=== PATIENT | female | born 1985 | race Two or more races ===

== ENCOUNTER 2019-07-18 22:20 | Emergency (ER) | payer MEDICAID ==
[~2019-07-18] VITALS: Ht 162.6 cm; Wt 67.1 kg
[2019-07-18 22:48] LABS: Basophils # (auto) 0 uL; Basophils % (auto) 0.4 % (0.0-2.0); Eosinophils # (auto) 0 uL; Eosinophils % (auto) 0.1 % (0.0-7.0); Hematocrit 41.1 % (36.0-46.0); Hemoglobin 13.9 g/dL (12.2-16.2); Lymphocytes # (auto) 0.8 uL; Lymphocytes % (auto) 6.2 % (10.0-50.0); Mean Corpuscular Hemoglobin 30.9 pg (28.0-32.0); Mean Corpuscular Volume 91.1 fL (80.0-100.0); Monocytes # (auto) 0.9 uL; Monocytes % (auto) 6.6 % (0.0-12.0); Neutrophils # (auto) 11.4 uL; Neutrophils % (auto) 86.7 % (37.0-80.0); Platelet Count (auto) 257 10^3/uL (140-450); Red Blood Cells 4.51 10^6/uL (4.0-5.20); Red Cell Distribution Width 14.3 % (11.8-14.3); White Blood Cell 13.1 10^3/uL (4.4-10.8)
[2019-07-18 23:19] LABS: Albumin 3.4 g/dL (3.4-5.0); BUN/Creatinine Ratio 11.8; Calcium 8.6 mg/dL (8.5-10.1); Potassium 3.8 mmol/L (3.5-5.1)
[2019-07-18 23:22] LABS: Bilirubin, Total 0.5 mg/dL (0.2-1.0); Total Protein 7.6 g/dL (6.4-8.2)
[2019-07-19 00:19] LABS: Urine Bacteria MOD /hpf (None Seen); Urine Blood Negative /uL (Negative); Urine Hyaline Cast FEW /lpf (0 - 2); Urine Specific Gravity 1.018 (1.001-1.035); Urine WBC 25 /hpf (0 - 5)
[2019-07-19] MEDS ORDERED: cefTRIAXone 1GM/50ML D5W 50 ML IV ONE (01:45)
[2019-07-19] MEDS ORDERED: ONDANSETRON HCL 4 MG/2 ML VIAL IV ONE (01:45)
[2019-07-19] MEDS ORDERED: KETOROLAC TROMETH 30 MG/ML 1ML VIAL IV ONE (01:45)
[2019-07-19 03:43] VITALS: BP 116/78
== END 2019-07-19 03:54 | disposition home or self-care (01) ==
LOC: ER 22:23
DX: N39.0 Urinary tract infection, site not specified (principal); F17.210 Nicotine dependence, cigarettes, uncomplicated
CPT/HCPCS: 36415; 74176; 80053; 81001; 81025; 83690; 85025; 96365; 96375; 99284; J0696; J1885; J2405

== ENCOUNTER 2021-04-23 18:38 | Emergency (ER) | payer MEDICAID ==
[~2021-04-23] VITALS: Ht 152.4 cm; Wt 54.4 kg
[2021-04-23 19:34] LABS: Alanine Aminotransferase 28 U/L (13-56); Anion Gap 9 (5-15); Aspartate Aminotransferase 27 U/L (15-37); BUN/Creatinine Ratio 16.9; Blood Urea Nitrogen 11 mg/dL (7-18); Carbon Dioxide 25 mmol/L (21-32); Chloride 107 mmol/L (98-107); GFR African American 132 mL/min; GFR Non-African American 109 mL/min; Glucose 113 mg/dL (74-106); Magnesium 2.2 mg/dL (1.6-2.6); Potassium 3.1 mmol/L (3.5-5.1); Sodium 141 mmol/L (136-145)
[2021-04-23 19:35] LABS: Basophils # (auto) 0 10 ^3/uL (0-0.2); Basophils % (auto) 0.4 % (0.0-2.0); Eosinophils # (auto) 0 10 ^3/uL (0-0.8); Eosinophils % (auto) 0.4 % (0.0-7.0); Hematocrit 41.2 % (36.0-46.0); Hemoglobin 14.3 g/dL (12.2-16.2); Lymphocytes # (auto) 2.8 10 ^3/uL (0.4-5.4); Lymphocytes % (auto) 45.5 % (10.0-50.0); Mean Corpuscular Hemoglobin 31.1 pg (28.0-32.0); Mean Corpuscular Hgb Conc. 34.7 g/dL (32.0-36.0); Mean Corpuscular Volume 89.8 fL (80.0-100.0); Monocytes # (auto) 0.9 10 ^3/uL (0-1.3); Monocytes % (auto) 14.1 % (0.0-12.0); Neutrophils # (auto) 2.4 10 ^3/uL (1.6-8.6); Neutrophils % (auto) 39.6 % (37.0-80.0); Nucleated Red Blood Cells % 0.3 %; Red Blood Cells 4.59 10^6/uL (4.0-5.20); Red Cell Distribution Width 13.8 % (11.8-14.3); White Blood Cell 6.1 10^3/uL (4.4-10.8)
[2021-04-23 19:44] LABS: Alkaline Phosphatase 86 U/L (45-117); Bilirubin, Total 0.4 mg/dL (0.2-1.0); Total Protein 7.6 g/dL (6.4-8.2)
[2021-04-23 20:29] LABS: Acetaminophen 2.1 ug/mL (10-30); Salicylate < 1.7 mg/dL (2.8-20.0)
[2021-04-24 10:56] LABS: Urine Amorphous Crystal FEW /hpf (None Seen); Urine Bacteria FEW /hpf (None Seen); Urine Blood Negative /uL (Negative); Urine Mucus FEW (None Seen); Urine Specific Gravity 1.026 (1.001-1.035); Urine WBC 1 /hpf (0 - 5)
[2021-04-24 11:04] LABS: Alcohol, Urine < 3.0 mg/dL (0-10); Amphetamine Screen, Urine POSITIVE (NEGATIVE); Cannabinoid Screen, Urine NEGATIVE (NEGATIVE); Cocaine Screen, Urine NEGATIVE (NEGATIVE); Phencyclidine Screen, Urine NEGATIVE (NEGATIVE)
[2021-04-24 11:11] LABS: Barbiturate Scree,Urine NEGATIVE (NEGATIVE); Benzodiazephine Screen, Urine NEGATIVE (NEGATIVE); Opiate Scree,Urine NEGATIVE (NEGATIVE)
[2021-04-24] MEDS ORDERED: LORazepam 2MG/ML-1ML VIAL IM ONE (20:15)
[2021-04-25] MEDS: THIAMINE HCL 100 MG TAB PO SCH (06:46)
[2021-04-25] MEDS: MULTIPLE VITAMIN TAB PO SCH (06:47)
[2021-04-25] MEDS ORDERED: LORazepam 0.5 MG TAB PO ONE (20:30)
[2021-04-26] MEDS: THIAMINE HCL 100 MG TAB PO SCH (07:32)
[2021-04-26] MEDS: MULTIPLE VITAMIN TAB PO SCH (07:33)
[2021-04-26] MEDS ORDERED: LORazepam 0.5 MG TAB PO ONE ×2 (10:30→19:45)
[2021-04-26] MEDS ORDERED: POTASSIUM EFFERVESENT TAB 25 MEQ PO ONE (11:30)
[2021-04-27] MEDS: MULTIPLE VITAMIN TAB PO SCH (07:00)
[2021-04-27] MEDS: THIAMINE HCL 100 MG TAB PO SCH (07:00)
[2021-04-27 10:00] VITALS: BP 99/65
== END 2021-04-27 10:45 | disposition home or self-care (01) ==
LOC: EDBD 18:38 → ER 18:42
DX: T39.1X2A Poisoning by 4-Aminophenol derivatives, intentional self-harm, initial encounter (principal); R07.9 Chest pain, unspecified; F17.210 Nicotine dependence, cigarettes, uncomplicated; Z20.822 Contact with and (suspected) exposure to COVID-19; Y92.89 Other specified places as the place of occurrence of the external cause
CPT/HCPCS: 36415; 80053; 80307; 80320; 80329; 81001; 82248; 83735; 84484; 84702; 85025; 85049; 87426; 93005

== ENCOUNTER 2021-05-15 17:30 | Inpatient (IN) | payer MEDICAID ==
[2021-05-15] VITALS (10 sets, daily range): BP systolic 83–146; BP diastolic 54–79
[~2021-05-15] VITALS: Ht 162.6 cm; Wt 52.2 kg
[2021-05-15] MEDS ORDERED: ETOMIDATE (2MG/ML) 20ML VIAL IV ONE ×2 (17:50→19:00)
[2021-05-15] MEDS ORDERED: SUCCINYLCHOLINE CHLORIDE 20 MG/ML 10ML VIAL IV ONE ×2 (17:50→19:00)
[2021-05-15] MEDS ORDERED: MIDAZOLAM DRIP 50 mg/50mL 50 ML IV ONE (17:50)
[2021-05-15] MEDS: MIDAZOLAM DRIP 50 mg/50mL 50 ML IV SCH ×2 (17:57→23:58)
[2021-05-15] MEDS ORDERED: NOREPINEPHRINE 8 MG/250ML KIT 250 ML IV ONE (17:58)
[2021-05-15] MEDS: NOREPINEPHRINE 8 MG/250ML KIT 250 ML IV SCH ×2 (18:00→23:58)
[2021-05-15] MEDS ORDERED: SODIUM CHLORIDE 0.9% 1,000 ML IV ONE ×2 (18:00)
[2021-05-15 18:22] LABS: Hematocrit 45.4 % (36.0-46.0); Hemoglobin 15.4 g/dL (12.2-16.2); Mean Corpuscular Hemoglobin 30.7 pg (28.0-32.0); Mean Corpuscular Hgb Conc. 33.9 g/dL (32.0-36.0); Mean Corpuscular Volume 90.6 fL (80.0-100.0); Red Blood Cells 5.01 10^6/uL (4.0-5.20); Red Cell Distribution Width 14.1 % (11.8-14.3)
[2021-05-15 18:26] LABS: Basophils % (manual) 0 (0.0-2.0); Blast Cells 0; Metamyelocytes % 0; Myelocytes % 0; Promyelocytes % 0; Reactive Lymphocytes 0
[2021-05-15] MEDS ORDERED: ACETAMINOPHEN 325 MG RECT SUPP PR ONE ×2 (18:27→18:29)
[2021-05-15 18:36] LABS: Salicylate < 1.7 mg/dL (2.8-20.0)
[2021-05-15 18:37] LABS: Albumin 3.7 g/dL (3.4-5.0); Anion Gap 13 (5-15); Blood Alcohol < 3.0 mg/dL (0-5); Blood Urea Nitrogen 14 mg/dL (7-18); Calcium 8.4 mg/dL (8.5-10.1); Carbon Dioxide 23 mmol/L (21-32); Chloride 106 mmol/L (98-107); Glucose 106 mg/dL (74-106); Potassium 3.1 mmol/L (3.5-5.1); Sodium 142 mmol/L (136-145)
[2021-05-15 18:40] LABS: Urine Bacteria NONE SEEN /hpf (None Seen); Urine Blood 3+ /uL (Negative); Urine Hyaline Cast FEW /lpf (0 - 2); Urine Mucus FEW (None Seen); Urine Specific Gravity 1.028 (1.001-1.035); Urine WBC 16 /hpf (0 - 5)
[2021-05-15 18:41] LABS: Acetaminophen < 2.0 ug/mL (10-30)
[2021-05-15 18:54] LABS: Alanine Aminotransferase 4362 U/L (13-56); Alkaline Phosphatase 81 U/L (45-117); Aspartate Aminotransferase 427 U/L (15-37); Bilirubin, Total 0.8 mg/dL (0.2-1.0); GFR African American 54 mL/min; GFR Non-African American 45 mL/min; Total Protein 7.2 g/dL (6.4-8.2)
[2021-05-15] MEDS ORDERED: ACETAMINOPHEN 650 MG RECT SUPP PR ONE (19:00)
[2021-05-15 19:03] LABS: Amphetamine Screen, Urine POSITIVE (NEGATIVE); Barbiturate Scree,Urine NEGATIVE (NEGATIVE); Benzodiazephine Screen, Urine NEGATIVE (NEGATIVE); Cannabinoid Screen, Urine NEGATIVE (NEGATIVE); Cocaine Screen, Urine NEGATIVE (NEGATIVE); Opiate Scree,Urine NEGATIVE (NEGATIVE); Phencyclidine Screen, Urine NEGATIVE (NEGATIVE)
[2021-05-15] MEDS ORDERED: fentaNYL Drip 2500mCg/250mlNS 250 ML IV ONE (19:12)
[2021-05-15] MEDS ORDERED: MORPHINE SULFATE INJECTION 2 MG/ML SYRG IV PRN (19:15)
[2021-05-15] MEDS ORDERED: ACETAMINOPHEN 325 MG RECT SUPP PR PRN (19:15)
[2021-05-15] MEDS ORDERED: NITROGLYCERIN 0.4 MG SL TAB SL PRN (19:15)
[2021-05-15] MEDS: fentaNYL Drip 2500mCg/250mlNS 250 ML IV SCH (19:25)
[2021-05-15 19:55] LABS: Band Neutrophils % (manual) 4; Eosinophils % (manual) 1 (0-7); Lymphocytes % (manual) 6 (10.0-50.0); Monocytes % (manual) 3 (0-12)
[2021-05-15] MEDS: ENOXAPARIN SOD 40 MG/0.4 ML SYRINGE SC SCH (20:17)
[2021-05-15] MEDS: cefTRIAXone 1GM/50ML D5W 50 ML IV SCH (20:22)
[2021-05-15] MEDS: POTASSIUM CHL 20MEQ/100ML 100 ML IV SCH ×2 (20:38→22:42)
[2021-05-16] VITALS (104 sets, daily range): BP systolic 86–146; BP diastolic 47–96
[2021-05-16 00:27] LABS: INR 1.11 (0.9-1.15); Partial Thromboplastin Time 25.9 sec (23.0-31.2)
[2021-05-16] MEDS: MIDAZOLAM DRIP 50 mg/50mL 50 ML IV SCH ×2 (03:45→07:22)
[2021-05-16 04:10] LABS: Basophils # (auto) 0 10 ^3/uL (0-0.2); Basophils % (auto) 0.2 % (0.0-2.0); Eosinophils # (auto) 0 10 ^3/uL (0-0.8); Hematocrit 39.7 % (36.0-46.0); Hemoglobin 13.4 g/dL (12.2-16.2); Lymphocytes # (auto) 0.8 10 ^3/uL (0.4-5.4); Lymphocytes % (auto) 7.7 % (10.0-50.0); Mean Corpuscular Hemoglobin 30.2 pg (28.0-32.0); Mean Corpuscular Hgb Conc. 33.9 g/dL (32.0-36.0); Mean Corpuscular Volume 89.2 fL (80.0-100.0); Monocytes # (auto) 0.8 10 ^3/uL (0-1.3); Monocytes % (auto) 7.8 % (0.0-12.0); Neutrophils % (auto) 84.3 % (37.0-80.0); Nucleated Red Blood Cells % 0.1 %; Red Blood Cells 4.45 10^6/uL (4.0-5.20); Red Cell Distribution Width 13.8 % (11.8-14.3); White Blood Cell 10.7 10^3/uL (4.4-10.8)
[2021-05-16 04:28] LABS: Potassium 3.1 mmol/L (3.5-5.1)
[2021-05-16 04:32] LABS: Albumin 2.9 g/dL (3.4-5.0); BUN/Creatinine Ratio 17.7; Calcium 7.3 mg/dL (8.5-10.1); Magnesium 2.1 mg/dL (1.6-2.6)
[2021-05-16 04:36] LABS: INR 1.1 (0.9-1.15)
[2021-05-16 04:41] LABS: Bilirubin, Total 0.8 mg/dL (0.2-1.0); Total Protein 5.7 g/dL (6.4-8.2)
[2021-05-16] MEDS ORDERED: cefTRIAXone 1GM/50ML D5W 50 ML IV SCH (09:00)
[2021-05-16] MEDS: cefTRIAXone 1GM/50ML D5W 50 ML IV SCH (09:34)
[2021-05-16] MEDS: PANTOPRAZOLE 40 MG/10 ML VIAL INJ IV SCH (10:30)
[2021-05-16] MEDS: ENOXAPARIN SOD 40 MG/0.4 ML SYRINGE SC SCH (10:30)
[2021-05-16] MEDS ORDERED: POTASSIUM CHL 20MEQ/100ML 100 ML IV SCH (12:15)
[2021-05-16] MEDS ORDERED: SODIUM BICARBONATE 8.4 % INJ 50ML VIAL IV ONE (12:30)
[2021-05-16] MEDS: POTASSIUM CHL 20MEQ/100ML 100 ML IV SCH ×4 (13:16→17:09)
[2021-05-16] MEDS: fentaNYL Drip 2500mCg/250mlNS 250 ML IV SCH (14:00)
[2021-05-16] MEDS: NOREPINEPHRINE 8 MG/250ML KIT 250 ML IV SCH (17:00)
[2021-05-16] MEDS: CEFEPIME 1 GM in SODIUM CHL 0.9% 50 ML IV SCH (21:26)
[2021-05-17] VITALS (101 sets, daily range): BP systolic 80–144; BP diastolic 42–99
[2021-05-17 04:21] LABS: Basophils # (auto) 0 10 ^3/uL (0-0.2); Basophils % (auto) 0.2 % (0.0-2.0); Eosinophils # (auto) 0 10 ^3/uL (0-0.8); Eosinophils % (auto) 0.4 % (0.0-7.0); Hematocrit 34.6 % (36.0-46.0); Hemoglobin 12.2 g/dL (12.2-16.2); Lymphocytes # (auto) 2.4 10 ^3/uL (0.4-5.4); Lymphocytes % (auto) 32.3 % (10.0-50.0); Mean Corpuscular Hemoglobin 31.1 pg (28.0-32.0); Mean Corpuscular Hgb Conc. 35.1 g/dL (32.0-36.0); Mean Corpuscular Volume 88.6 fL (80.0-100.0); Monocytes # (auto) 0.7 10 ^3/uL (0-1.3); Monocytes % (auto) 9.3 % (0.0-12.0); Neutrophils # (auto) 4.4 10 ^3/uL (1.6-8.6); Neutrophils % (auto) 57.8 % (37.0-80.0); Nucleated Red Blood Cells % 0.1 %; Red Blood Cells 3.91 10^6/uL (4.0-5.20); Red Cell Distribution Width 14.1 % (11.8-14.3); White Blood Cell 7.6 10^3/uL (4.4-10.8)
[2021-05-17 04:37] LABS: Calcium 7.7 mg/dL (8.5-10.1); Potassium 3.5 mmol/L (3.5-5.1)
[2021-05-17 04:40] LABS: BUN/Creatinine Ratio 13.5
[2021-05-17] MEDS: MIDAZOLAM DRIP 50 mg/50mL 50 ML IV SCH ×3 (05:56→22:04)
[2021-05-17] MEDS: fentaNYL Drip 2500mCg/250mlNS 250 ML IV SCH (10:30)
[2021-05-17] MEDS: PANTOPRAZOLE 40 MG/10 ML VIAL INJ IV SCH (10:30)
[2021-05-17] MEDS: ENOXAPARIN SOD 40 MG/0.4 ML SYRINGE SC SCH (10:30)
[2021-05-17] MEDS: CEFEPIME 1 GM in SODIUM CHL 0.9% 50 ML IV SCH ×2 (11:00→21:27)
[2021-05-17] MEDS: D5W/SOD CHL 0.45% 1,000 ML IV SCH (14:56)
[2021-05-17] MEDS: NOREPINEPHRINE 8 MG/250ML KIT 250 ML IV SCH (18:45)
[2021-05-18] VITALS (104 sets, daily range): BP systolic 80–127; BP diastolic 42–88
[2021-05-18] MEDS: D5W/SOD CHL 0.45% 1,000 ML IV SCH ×2 (03:05→09:49)
[2021-05-18] MEDS: fentaNYL Drip 2500mCg/250mlNS 250 ML IV SCH ×2 (09:45→13:23)
[2021-05-18] MEDS: PANTOPRAZOLE 40 MG/10 ML VIAL INJ IV SCH (09:49)
[2021-05-18] MEDS: ENOXAPARIN SOD 40 MG/0.4 ML SYRINGE SC SCH (09:49)
[2021-05-18] MEDS: CEFEPIME 1 GM in SODIUM CHL 0.9% 50 ML IV SCH ×2 (10:59→21:01)
[2021-05-18] MEDS: NOREPINEPHRINE 8 MG/250ML KIT 250 ML IV SCH (16:51)
[2021-05-19] VITALS (99 sets, daily range): BP systolic 88–132; BP diastolic 49–88
[2021-05-19 08:23] LABS: Basophils # (auto) 0 10 ^3/uL (0-0.2); Basophils % (auto) 0.3 % (0.0-2.0); Eosinophils # (auto) 0.1 10 ^3/uL (0-0.8); Eosinophils % (auto) 1.5 % (0.0-7.0); Hematocrit 34.4 % (36.0-46.0); Hemoglobin 11.8 g/dL (12.2-16.2); Lymphocytes # (auto) 1.8 10 ^3/uL (0.4-5.4); Lymphocytes % (auto) 29.5 % (10.0-50.0); Mean Corpuscular Hemoglobin 30.6 pg (28.0-32.0); Mean Corpuscular Hgb Conc. 34.4 g/dL (32.0-36.0); Mean Corpuscular Volume 88.8 fL (80.0-100.0); Monocytes # (auto) 0.5 10 ^3/uL (0-1.3); Monocytes % (auto) 7.7 % (0.0-12.0); Neutrophils # (auto) 3.8 10 ^3/uL (1.6-8.6); Nucleated Red Blood Cells % 0.1 %; Red Blood Cells 3.87 10^6/uL (4.0-5.20); White Blood Cell 6.3 10^3/uL (4.4-10.8)
[2021-05-19 08:26] LABS: Albumin 2.6 g/dL (3.4-5.0); Calcium 8.1 mg/dL (8.5-10.1); Magnesium 2.1 mg/dL (1.6-2.6); Potassium 3.4 mmol/L (3.5-5.1)
[2021-05-19 08:29] LABS: BUN/Creatinine Ratio 13.6; Bilirubin, Total 0.6 mg/dL (0.2-1.0); Total Protein 5.9 g/dL (6.4-8.2)
[2021-05-19] MEDS: PANTOPRAZOLE 40 MG/10 ML VIAL INJ IV SCH (09:24)
[2021-05-19] MEDS: ENOXAPARIN SOD 40 MG/0.4 ML SYRINGE SC SCH (09:24)
[2021-05-19] MEDS: D5W/SOD CHL 0.45% 1,000 ML IV SCH ×2 (09:25→19:19)
[2021-05-19] MEDS: CEFEPIME 1 GM in SODIUM CHL 0.9% 50 ML IV SCH ×2 (09:25→18:00)
[2021-05-19] MEDS ORDERED: POTASSIUM CHL 20MEQ/100ML 100 ML IV ONE (11:45)
[2021-05-19 15:02] LABS: Hepatitis A Ab IgM Negative; Hepatitis B Core IgM Negative; Hepatitis B Surface Antigen Negative (Negative); Hepatitis C Antibody Negative (Negative)
[2021-05-19] MEDS: fentaNYL Drip 2500mCg/250mlNS 250 ML IV SCH (16:00)
[2021-05-19] MEDS: MIDAZOLAM DRIP 50 mg/50mL 50 ML IV SCH (16:18)
[2021-05-19] MEDS: NOREPINEPHRINE 8 MG/250ML KIT 250 ML IV SCH (18:42)
[2021-05-20] VITALS (96 sets, daily range): BP systolic 81–171; BP diastolic 41–103
[2021-05-20] MEDS: CEFEPIME 1 GM in SODIUM CHL 0.9% 50 ML IV SCH ×2 (02:06→09:50)
[2021-05-20 04:24] LABS: Basophils # (auto) 0 10 ^3/uL (0-0.2); Basophils % (auto) 0.3 % (0.0-2.0); Eosinophils # (auto) 0.1 10 ^3/uL (0-0.8); Eosinophils % (auto) 2.1 % (0.0-7.0); Hematocrit 34.6 % (36.0-46.0); Hemoglobin 11.9 g/dL (12.2-16.2); Lymphocytes # (auto) 1.6 10 ^3/uL (0.4-5.4); Lymphocytes % (auto) 29.3 % (10.0-50.0); Mean Corpuscular Hemoglobin 30.7 pg (28.0-32.0); Mean Corpuscular Hgb Conc. 34.4 g/dL (32.0-36.0); Mean Corpuscular Volume 89.3 fL (80.0-100.0); Monocytes # (auto) 0.6 10 ^3/uL (0-1.3); Monocytes % (auto) 10.4 % (0.0-12.0); Neutrophils # (auto) 3.2 10 ^3/uL (1.6-8.6); Neutrophils % (auto) 57.9 % (37.0-80.0); Red Blood Cells 3.87 10^6/uL (4.0-5.20); Red Cell Distribution Width 13.6 % (11.8-14.3); White Blood Cell 5.5 10^3/uL (4.4-10.8)
[2021-05-20 04:48] LABS: BUN/Creatinine Ratio 18.4; Calcium 8.4 mg/dL (8.5-10.1); Potassium 3.6 mmol/L (3.5-5.1)
[2021-05-20] MEDS: D5W/SOD CHL 0.45% 1,000 ML IV SCH ×2 (08:25→21:52)
[2021-05-20] MEDS: ENOXAPARIN SOD 40 MG/0.4 ML SYRINGE SC SCH (09:39)
[2021-05-20] MEDS: PANTOPRAZOLE 40 MG/10 ML VIAL INJ IV SCH (09:39)
[2021-05-20] MEDS ORDERED: EPINEPHrine HCL 0.5 ML NEB ONE (13:11)
[2021-05-20] MEDS ORDERED: NALOXONE HCL 0.4 MG/ML VIAL ONE ×2 (13:20→13:49)
[2021-05-20] MEDS ORDERED: methylPREDNISolone SOD SUCC 125 MG/2 ML VL ONE (13:20)
[2021-05-20] MEDS ORDERED: NALOXONE HCL 0.4 MG/ML VIAL IV ONE ×2 (13:30→14:00)
[2021-05-20] MEDS ORDERED: LORazepam 2MG/ML-1ML VIAL IV ONE (13:45)
[2021-05-20] MEDS ORDERED: SUCCINYLCHOLINE CHLORIDE 20 MG/ML 10ML VIAL IV ONE (13:58)
[2021-05-20] MEDS ORDERED: methylPREDNISolone SOD SUCC 125 MG/2 ML VL IV ONE (14:30)
[2021-05-20] MEDS ORDERED: Glucerna 1.2 Cal 1Liter BOTTLE GT SCH (14:45)
[2021-05-20] MEDS ORDERED: PROPOFOL 100 ML IV ONE (14:59)
[2021-05-20] MEDS: PROPOFOL 100 ML IV SCH (15:00)
[2021-05-20] MEDS: fentaNYL Drip 2500mCg/250mlNS 250 ML IV SCH (15:52)
[2021-05-20] MEDS: MIDAZOLAM DRIP 50 mg/50mL 50 ML IV SCH ×2 (15:54→19:52)
[2021-05-20] MEDS: CLINDAMYCIN 600MG IV 50 ML IV SCH ×2 (16:40→21:52)
[2021-05-20] MEDS: NOREPINEPHRINE 8 MG/250ML KIT 250 ML IV SCH (18:45)
[2021-05-21] VITALS (105 sets, daily range): BP systolic 83–151; BP diastolic 43–97
[2021-05-21] MEDS: fentaNYL Drip 2500mCg/250mlNS 250 ML IV SCH ×2 (04:40→16:15)
[2021-05-21] MEDS: MIDAZOLAM DRIP 50 mg/50mL 50 ML IV SCH ×3 (04:41→17:30)
[2021-05-21 05:10] LABS: Basophils # (auto) 0 10 ^3/uL (0-0.2); Eosinophils # (auto) 0 10 ^3/uL (0-0.8); Hematocrit 36.6 % (36.0-46.0); Hemoglobin 12.8 g/dL (12.2-16.2); Lymphocytes # (auto) 0.5 10 ^3/uL (0.4-5.4); Lymphocytes % (auto) 6.1 % (10.0-50.0); Mean Corpuscular Hemoglobin 30.9 pg (28.0-32.0); Mean Corpuscular Volume 88.2 fL (80.0-100.0); Monocytes # (auto) 0.2 10 ^3/uL (0-1.3); Monocytes % (auto) 2.2 % (0.0-12.0); Neutrophils # (auto) 7.2 10 ^3/uL (1.6-8.6); Neutrophils % (auto) 91.7 % (37.0-80.0); Red Blood Cells 4.15 10^6/uL (4.0-5.20); Red Cell Distribution Width 13.5 % (11.8-14.3); White Blood Cell 7.9 10^3/uL (4.4-10.8)
[2021-05-21 05:23] LABS: Calcium 9.1 mg/dL (8.5-10.1); Potassium 4.3 mmol/L (3.5-5.1)
[2021-05-21 05:26] LABS: BUN/Creatinine Ratio 21.4
[2021-05-21] MEDS: CLINDAMYCIN 600MG IV 50 ML IV SCH ×3 (05:57→21:48)
[2021-05-21] MEDS: ENOXAPARIN SOD 40 MG/0.4 ML SYRINGE SC SCH (10:38)
[2021-05-21] MEDS: PANTOPRAZOLE 40 MG/10 ML VIAL INJ IV SCH (10:38)
[2021-05-21] MEDS: D5W/SOD CHL 0.45% 1,000 ML IV SCH (13:54)
[2021-05-21] MEDS: PROPOFOL 100 ML IV SCH (14:56)
[2021-05-21] MEDS: NOREPINEPHRINE 8 MG/250ML KIT 250 ML IV SCH (18:49)
[2021-05-22] VITALS (97 sets, daily range): BP systolic 79–137; BP diastolic 38–91
[2021-05-22 04:53] LABS: Basophils # (auto) 0 10 ^3/uL (0-0.2); Basophils % (auto) 0.2 % (0.0-2.0); Eosinophils # (auto) 0 10 ^3/uL (0-0.8); Eosinophils % (auto) 0.2 % (0.0-7.0); Hematocrit 36.1 % (36.0-46.0); Hemoglobin 12.5 g/dL (12.2-16.2); Lymphocytes # (auto) 2.2 10 ^3/uL (0.4-5.4); Lymphocytes % (auto) 18.3 % (10.0-50.0); Mean Corpuscular Hemoglobin 30.5 pg (28.0-32.0); Mean Corpuscular Hgb Conc. 34.7 g/dL (32.0-36.0); Mean Corpuscular Volume 87.9 fL (80.0-100.0); Monocytes # (auto) 1.7 10 ^3/uL (0-1.3); Neutrophils # (auto) 8.1 10 ^3/uL (1.6-8.6); Neutrophils % (auto) 67.3 % (37.0-80.0); Nucleated Red Blood Cells % 0.1 %; Red Cell Distribution Width 13.8 % (11.8-14.3); White Blood Cell 12.1 10^3/uL (4.4-10.8)
[2021-05-22] MEDS: D5W/SOD CHL 0.45% 1,000 ML IV SCH ×3 (05:03→21:03)
[2021-05-22 05:15] LABS: Potassium 3.3 mmol/L (3.5-5.1)
[2021-05-22 05:19] LABS: BUN/Creatinine Ratio 21.4; Calcium 8.5 mg/dL (8.5-10.1)
[2021-05-22] MEDS: CLINDAMYCIN 600MG IV 50 ML IV SCH ×3 (05:46→21:03)
[2021-05-22] MEDS: PANTOPRAZOLE 40 MG/10 ML VIAL INJ IV SCH (09:42)
[2021-05-22] MEDS: ENOXAPARIN SOD 40 MG/0.4 ML SYRINGE SC SCH (09:43)
[2021-05-22] MEDS: POTASSIUM CHL 20MEQ/100ML 100 ML IV SCH ×2 (11:20→13:00)
[2021-05-22] MEDS: PROPOFOL 100 ML IV SCH (15:00)
[2021-05-22] MEDS: MIDAZOLAM DRIP 50 mg/50mL 50 ML IV SCH (18:02)
[2021-05-22] MEDS: fentaNYL Drip 2500mCg/250mlNS 250 ML IV SCH (18:04)
[2021-05-22] MEDS: NOREPINEPHRINE 8 MG/250ML KIT 250 ML IV SCH (18:45)
[2021-05-23] VITALS (63 sets, daily range): BP systolic 67–152; BP diastolic 16–104
[2021-05-23] MEDS: MIDAZOLAM DRIP 50 mg/50mL 50 ML IV SCH ×2 (01:31→06:50)
[2021-05-23 04:56] LABS: Albumin 2.7 g/dL (3.4-5.0); BUN/Creatinine Ratio 19.4; Calcium 8.7 mg/dL (8.5-10.1); Potassium 3.1 mmol/L (3.5-5.1)
[2021-05-23 04:59] LABS: Bilirubin, Total 0.3 mg/dL (0.2-1.0); Total Protein 6.3 g/dL (6.4-8.2)
[2021-05-23] MEDS: CLINDAMYCIN 600MG IV 50 ML IV SCH ×3 (05:04→20:58)
[2021-05-23] MEDS: POTASSIUM CHL 20MEQ/100ML 100 ML IV SCH ×2 (06:49→08:56)
[2021-05-23] MEDS: fentaNYL Drip 2500mCg/250mlNS 250 ML IV SCH (06:50)
[2021-05-23] MEDS: ENOXAPARIN SOD 40 MG/0.4 ML SYRINGE SC SCH (10:30)
[2021-05-23] MEDS: PANTOPRAZOLE 40 MG/10 ML VIAL INJ IV SCH (10:30)
[2021-05-23] MEDS ORDERED: DexAMETHasone SOD PHOS 4 MG/1ML SDV INJ ONE (13:56)
[2021-05-23] MEDS ORDERED: DexAMETHasone SOD PHOS 4 MG/1ML SDV INJ IV ONE (14:00)
[2021-05-23] MEDS ORDERED: EPINEPHrine HCL 0.5 ML NEB ONE (14:28)
[2021-05-23] MEDS ORDERED: EPINEPHrine HCL 0.5 ML NEB NEB ONE (14:30)
[2021-05-23] MEDS ORDERED: ALBUTEROL SULF 2.5 MG/0.5ML(0.5%) NEB SOLN ONE (14:49)
[2021-05-23] MEDS: PROPOFOL 100 ML IV SCH (15:00)
[2021-05-23] MEDS: D5W/SOD CHL 0.45% 1,000 ML IV SCH (17:00)
[2021-05-23] MEDS: NOREPINEPHRINE 8 MG/250ML KIT 250 ML IV SCH (18:45)
[2021-05-24 02:00] VITALS: BP 150/88
[2021-05-24 04:45] LABS: Basophils # (auto) 0 10 ^3/uL (0-0.2); Basophils % (auto) 0.1 % (0.0-2.0); Eosinophils # (auto) 0 10 ^3/uL (0-0.8); Eosinophils % (auto) 0.1 % (0.0-7.0); Hematocrit 39.5 % (36.0-46.0); Hemoglobin 13.7 g/dL (12.2-16.2); Lymphocytes # (auto) 1.1 10 ^3/uL (0.4-5.4); Lymphocytes % (auto) 9.1 % (10.0-50.0); Mean Corpuscular Hemoglobin 30.2 pg (28.0-32.0); Mean Corpuscular Hgb Conc. 34.8 g/dL (32.0-36.0); Mean Corpuscular Volume 86.7 fL (80.0-100.0); Monocytes # (auto) 1.3 10 ^3/uL (0-1.3); Monocytes % (auto) 10.5 % (0.0-12.0); Neutrophils % (auto) 80.2 % (37.0-80.0); Red Blood Cells 4.56 10^6/uL (4.0-5.20); Red Cell Distribution Width 13.7 % (11.8-14.3); White Blood Cell 12.5 10^3/uL (4.4-10.8)
[2021-05-24 05:29] LABS: Potassium 3.6 mmol/L (3.5-5.1)
[2021-05-24 05:36] LABS: Albumin 3.2 g/dL (3.4-5.0); BUN/Creatinine Ratio 23.3; Bilirubin, Total 0.6 mg/dL (0.2-1.0); Calcium 9.6 mg/dL (8.5-10.1); Magnesium 1.9 mg/dL (1.6-2.6); Phosphorus 4.4 mg/dL (2.5-4.90); Total Protein 8.1 g/dL (6.4-8.2)
[2021-05-24] MEDS: CLINDAMYCIN 600MG IV 50 ML IV SCH ×4 (06:00→22:00)
[2021-05-24 07:30] VITALS: BP 142/78
[2021-05-24] MEDS ORDERED: HALOPERIDOL LACTATE 5 MG/ML INJ VIAL IM PRN (07:45)
[2021-05-24] MEDS: D5W/SOD CHL 0.45% 1,000 ML IV SCH ×2 (09:21→19:05)
[2021-05-24] MEDS: ENOXAPARIN SOD 40 MG/0.4 ML SYRINGE SC SCH (09:45)
[2021-05-24] MEDS: PANTOPRAZOLE 40 MG/10 ML VIAL INJ IV SCH (09:59)
[2021-05-24] MEDS: ONDANSETRON HCL 4 MG/2 ML VIAL IV PRN ×2 (09:59→20:10)
[2021-05-24 10:00] VITALS: BP 126/74
[2021-05-24 13:45] VITALS: BP 133/87
[2021-05-24 17:00] VITALS: BP 151/94
[2021-05-24 22:16] VITALS: BP 121/77
[2021-05-25 05:31] VITALS: BP 118/78
[2021-05-25] MEDS: CLINDAMYCIN 600MG IV 50 ML IV SCH ×3 (06:00→21:17)
[2021-05-25] MEDS: D5W/SOD CHL 0.45% 1,000 ML IV SCH ×2 (08:30→21:17)
[2021-05-25 09:00] VITALS: BP 108/60
[2021-05-25] MEDS: ENOXAPARIN SOD 40 MG/0.4 ML SYRINGE SC SCH (10:00)
[2021-05-25] MEDS: PANTOPRAZOLE 40 MG/10 ML VIAL INJ IV SCH (10:00)
[2021-05-25 13:00] VITALS: BP 104/63
[2021-05-25] MEDS: ALPRAZolam 0.25 MG TAB PO PRN (16:48)
[2021-05-25 17:00] VITALS: BP 104/63
[2021-05-25 22:00] VITALS: BP 102/57
[2021-05-26 05:00] VITALS: BP 104/60
[2021-05-26] MEDS: CLINDAMYCIN 600MG IV 50 ML IV SCH ×3 (05:11→21:41)
[2021-05-26] MEDS ORDERED: traZODone HCL 50 MG TAB PO PRN (09:00)
[2021-05-26] MEDS: PANTOPRAZOLE 40 MG/10 ML VIAL INJ IV SCH (09:36)
[2021-05-26] MEDS: busPIRone HCL 10 MG TAB PO SCH ×2 (09:37→21:42)
[2021-05-26] MEDS: SERTRALINE HCL 50 MG TAB PO SCH (09:37)
[2021-05-26] MEDS: ENOXAPARIN SOD 40 MG/0.4 ML SYRINGE SC SCH (09:44)
[2021-05-26 10:38] LABS: Basophils # (auto) 0 10 ^3/uL (0-0.2); Eosinophils # (auto) 0 10 ^3/uL (0-0.8); Lymphocytes # (auto) 1.4 10 ^3/uL (0.4-5.4); Mean Corpuscular Hemoglobin 31.6 pg (28.0-32.0); Monocytes # (auto) 0.7 10 ^3/uL (0-1.3); White Blood Cell 7.7 10^3/uL (4.4-10.8)
[2021-05-26 10:40] LABS: Basophils % (auto) 0.5 % (0.0-2.0); Eosinophils % (auto) 0.4 % (0.0-7.0); Hematocrit 40.9 % (36.0-46.0); Hemoglobin 14.6 g/dL (12.2-16.2); Lymphocytes % (auto) 17.8 % (10.0-50.0); Mean Corpuscular Hgb Conc. 35.8 g/dL (32.0-36.0); Mean Corpuscular Volume 88.3 fL (80.0-100.0); Monocytes % (auto) 8.7 % (0.0-12.0); Neutrophils # (auto) 5.6 10 ^3/uL (1.6-8.6); Neutrophils % (auto) 72.6 % (37.0-80.0); Red Blood Cells 4.63 10^6/uL (4.0-5.20); Red Cell Distribution Width 14.5 % (11.8-14.3)
[2021-05-26 11:00] LABS: Albumin 3.1 g/dL (3.4-5.0); Calcium 9.1 mg/dL (8.5-10.1); Magnesium 2.3 mg/dL (1.6-2.6); Potassium 3.8 mmol/L (3.5-5.1)
[2021-05-26 11:04] LABS: BUN/Creatinine Ratio 11.3; Bilirubin, Total 0.5 mg/dL (0.2-1.0); Phosphorus 2.5 mg/dL (2.5-4.90); Total Protein 7.6 g/dL (6.4-8.2)
[2021-05-26] MEDS: D5W/SOD CHL 0.45% 1,000 ML IV SCH (11:05)
[2021-05-26 22:00] VITALS: BP 111/65
[2021-05-27] MEDS: D5W/SOD CHL 0.45% 1,000 ML IV SCH ×2 (02:21→13:45)
[2021-05-27 05:00] VITALS: BP 93/53
[2021-05-27] MEDS: CLINDAMYCIN 600MG IV 50 ML IV SCH ×2 (05:51→13:30)
[2021-05-27 08:56] VITALS: BP 99/75
[2021-05-27] MEDS: PANTOPRAZOLE 40 MG/10 ML VIAL INJ IV SCH (09:39)
[2021-05-27] MEDS: busPIRone HCL 10 MG TAB PO SCH ×2 (09:39→22:10)
[2021-05-27] MEDS: SERTRALINE HCL 50 MG TAB PO SCH (09:40)
[2021-05-27 13:00] VITALS: BP 113/55
[2021-05-27] MEDS ORDERED: ZOLPIDEM TARTRATE 5 MG TAB PO PRN (14:15)
[2021-05-27 16:37] VITALS: BP 106/60
[2021-05-27 22:00] VITALS: BP 111/72
[2021-05-28] MEDS: CLINDAMYCIN 600MG IV 50 ML IV SCH ×4 (00:01→21:34)
[2021-05-28] MEDS: D5W/SOD CHL 0.45% 1,000 ML IV SCH ×2 (03:05→17:39)
[2021-05-28 05:00] VITALS: BP 113/75
[2021-05-28 08:57] VITALS: BP 117/66
[2021-05-28] MEDS: busPIRone HCL 10 MG TAB PO SCH ×2 (09:18→21:35)
[2021-05-28] MEDS: SERTRALINE HCL 50 MG TAB PO SCH (09:18)
[2021-05-28 13:00] VITALS: BP 111/72
[2021-05-28] MEDS: ALPRAZolam 0.25 MG TAB PO PRN (13:48)
[2021-05-28 17:00] VITALS: BP 118/71
[2021-05-28 22:00] VITALS: BP 116/74
[2021-05-29 05:00] VITALS: BP 118/86
[2021-05-29] MEDS: CLINDAMYCIN 600MG IV 50 ML IV SCH ×2 (05:34→13:52)
[2021-05-29] MEDS: D5W/SOD CHL 0.45% 1,000 ML IV SCH ×2 (05:45→19:05)
[2021-05-29 06:22] LABS: Eosinophils # (auto) 0 10 ^3/uL (0-0.8); Monocytes # (auto) 0.7 10 ^3/uL (0-1.3)
[2021-05-29 06:28] LABS: Basophils # (auto) 0.1 10 ^3/uL (0-0.2); Basophils % (auto) 0.9 % (0.0-2.0); Eosinophils % (auto) 0.6 % (0.0-7.0); Hematocrit 36.8 % (36.0-46.0); Hemoglobin 13.2 g/dL (12.2-16.2); Lymphocytes # (auto) 2.4 10 ^3/uL (0.4-5.4); Mean Corpuscular Hemoglobin 31.3 pg (28.0-32.0); Monocytes % (auto) 10.6 % (0.0-12.0); Neutrophils # (auto) 3.5 10 ^3/uL (1.6-8.6); Neutrophils % (auto) 51.9 % (37.0-80.0); Nucleated Red Blood Cells % 0.1 %; Red Blood Cells 4.24 10^6/uL (4.0-5.20); Red Cell Distribution Width 14.3 % (11.8-14.3); White Blood Cell 6.7 10^3/uL (4.4-10.8)
[2021-05-29 06:46] LABS: Albumin 3.2 g/dL (3.4-5.0); Calcium 8.9 mg/dL (8.5-10.1); Magnesium 2.1 mg/dL (1.6-2.6); Potassium 3.5 mmol/L (3.5-5.1)
[2021-05-29 06:50] LABS: BUN/Creatinine Ratio 17.5; Bilirubin, Total 0.4 mg/dL (0.2-1.0); Total Protein 6.8 g/dL (6.4-8.2)
[2021-05-29 09:00] VITALS: BP 104/65
[2021-05-29] MEDS: SERTRALINE HCL 50 MG TAB PO SCH (09:50)
[2021-05-29] MEDS: busPIRone HCL 10 MG TAB PO SCH (09:50)
[2021-05-29 13:00] VITALS: BP 111/72
[2021-05-29] MEDS: ALPRAZolam 0.25 MG TAB PO PRN (15:57)
[2021-05-29 17:06] VITALS: BP 106/54
[2021-05-29 18:33] VITALS: BP 106/54
== END 2021-05-29 21:32 | DRG 130 ==
LOC: EDBD 17:30 → ER 17:30 → EDUNIT# 17:30 → TELE 19:11 → ICU WEST 21:42 → TELE-WESTW 05-23 23:43 → ICU WEST 05-23 23:54 → TELE-WESTW 05-24 00:12 → ICU WEST 05-24 00:26 → TELE-WESTW 05-24 14:19
PROVIDERS: ADMIT Family Medicine; ATTEND Internal Medicine
PROC: 5A1955Z Respiratory Ventilation, Greater than 96 Consecutive Hours (ICD-10-PCS; principal; 2021-05-15)
PROC: 0BH17EZ Insertion of Endotracheal Airway into Trachea, Via Natural or Artificial Opening (ICD-10-PCS; 2021-05-15)
PROC: 4A143B0 Monitoring of Venous Pressure, Central, Percutaneous Approach (ICD-10-PCS; 2021-05-15)
PROC: 02HV33Z Insertion of Infusion Device into Superior Vena Cava, Percutaneous Approach (ICD-10-PCS; 2021-05-15)
DX: J96.01 Acute respiratory failure with hypoxia (principal); J69.0 Pneumonitis due to inhalation of food and vomit; G92 Toxic encephalopathy; N39.0 Urinary tract infection, site not specified; R74.8 Abnormal levels of other serum enzymes; G40.909 Epilepsy, unspecified, not intractable, without status epilepticus; F15.10 Other stimulant abuse, uncomplicated; F41.9 Anxiety disorder, unspecified; F17.210 Nicotine dependence, cigarettes, uncomplicated; Z20.822 Contact with and (suspected) exposure to COVID-19; F19.10 Other psychoactive substance abuse, uncomplicated; F32.9 Major depressive disorder, single episode, unspecified; E87.6 Hypokalemia; T50.902A Poisoning by unspecified drugs, medicaments and biological substances, intentional self-harm, initial encounter; Z79.899 Other long term (current) drug therapy; Z91.5 Personal history of self-harm; Y92.89 Other specified places as the place of occurrence of the external cause
CPT/HCPCS: 31500; 36415; 36600; 70450; 71045; 71250; 74176; 80048; 80053; 80074; 80307; 80320; 80329; 81001; 82140; 82805; 83735; 83880; 84100; 84443; 84484; 85007; 85025; 85027; 85610; 85730; 87040; 87070; 87077; 87081; 87086; 87186; 87205; 87426; 92610; 94002; 94003; 94640; 95819; 96361; 96365; 96366; 96367; 96368; 96372; 97163; 99291; A4618; C9113; G0378; J0330; J0696; J1100; J2250; J2405; J2704; J3480; J3490; J7060

== ENCOUNTER 2023-09-26 03:09 | Inpatient (IN) | payer MEDICAID ==
[~2023-09-26] VITALS: Ht 162.6 cm; Wt 74.0 kg
[2023-09-26 03:59] LABS: Basophils # (auto) 0 10 ^3/uL (0-0.2); Basophils % (auto) 0.1 % (0.0-2.0); Eosinophils # (auto) 0 10 ^3/uL (0-0.8); Eosinophils % (auto) 0.1 % (0.0-7.0); Hematocrit 42.5 % (36.0-46.0); Hemoglobin 14.3 g/dL (12.2-16.2); Lymphocytes # (auto) 1.7 10 ^3/uL (0.4-5.4); Mean Corpuscular Hemoglobin 30.5 pg (28.0-32.0); Mean Corpuscular Hgb Conc. 33.6 g/dL (32.0-36.0); Mean Corpuscular Volume 90.8 fL (80.0-100.0); Monocytes # (auto) 0.9 10 ^3/uL (0-1.3); Monocytes % (auto) 4.8 % (0.0-12.0); Neutrophils # (auto) 16.4 10 ^3/uL (1.6-8.6); Red Blood Cells 4.68 10^6/uL (4.0-5.20); Red Cell Distribution Width 14.2 % (11.8-14.3); White Blood Cell 19.1 10^3/uL (4.4-10.8)
[2023-09-26 04:32] LABS: Alanine Aminotransferase 40 U/L (7-40); Alkaline Phosphatase 111 U/L (46-116); Calcium 8.8 mg/dL (8.7-10.4); Carbon Dioxide 26 mmol/L (20-30); Chloride 107 mmol/L (98-107); Glucose 165 mg/dL (74-106); Potassium 3.1 mmol/L (3.5-5.1); Sodium 140 mmol/L (136-145)
[2023-09-26 04:33] LABS: Albumin 4.3 g/dL (3.2-4.8); Anion Gap 7 (5-15); Aspartate Aminotransferase 26 U/L (13-40); BUN/Creatinine Ratio 14.1 (10.0-20.0); Bilirubin, Total 0.2 mg/dL (0.2-1.0); Blood Urea Nitrogen 10 mg/dL (9-23); Total Protein 6.9 g/dL (5.7-8.2)
[2023-09-26 04:52] LABS: Lipase > 3500 U/L (12-53)
[2023-09-26] MEDS ORDERED: SODIUM CHLORIDE 0.9% 1,000 ML IV ONE ×3 (06:45→07:30)
[2023-09-26] MEDS ORDERED: HYDROcodone-ACET 10/325MG TAB PO ONE (07:00)
[2023-09-26 07:03] LABS: Basophils # (auto) 0 10 ^3/uL (0-0.2); Basophils % (auto) 0.2 % (0.0-2.0); Eosinophils # (auto) 0 10 ^3/uL (0-0.8); Hematocrit 43.1 % (36.0-46.0); Hemoglobin 14.4 g/dL (12.2-16.2); Lymphocytes # (auto) 0.6 10 ^3/uL (0.4-5.4); Mean Corpuscular Hgb Conc. 33.4 g/dL (32.0-36.0); Mean Corpuscular Volume 89.7 fL (80.0-100.0); Monocytes # (auto) 0.4 10 ^3/uL (0-1.3); Monocytes % (auto) 2.7 % (0.0-12.0); Neutrophils # (auto) 14.8 10 ^3/uL (1.6-8.6); Neutrophils % (auto) 93.1 % (37.0-80.0); Red Blood Cells 4.81 10^6/uL (4.0-5.20); White Blood Cell 15.9 10^3/uL (4.4-10.8)
[2023-09-26 07:24] LABS: Alanine Aminotransferase 47 U/L (7-40); Albumin 4.5 g/dL (3.2-4.8); Alkaline Phosphatase 107 U/L (46-116); Anion Gap 6 (5-15); Aspartate Aminotransferase 28 U/L (13-40); BUN/Creatinine Ratio 14.5 (10.0-20.0); Bilirubin, Total 0.2 mg/dL (0.2-1.0); Blood Urea Nitrogen 9 mg/dL (9-23); Calcium 9.3 mg/dL (8.5-10.1); Carbon Dioxide 28 mmol/L (20-30); Chloride 107 mmol/L (98-107); Glucose 145 mg/dL (74-106); Potassium 3.6 mmol/L (3.5-5.1); Sodium 141 mmol/L (136-145); Total Protein 7.2 g/dL (5.7-8.2)
[2023-09-26] MEDS ORDERED: metroNIDAZOLE 500MG/100ML 100 ML IV ONE (07:30)
[2023-09-26] MEDS ORDERED: MORPHINE SULFATE 4 MG/ML SYR/VIAL IV ONE (07:30)
[2023-09-26] MEDS ORDERED: cefTRIAXone 1GM/50ML D5W 50 ML IV ONE (07:30)
[2023-09-26] MEDS ORDERED: ONDANSETRON HCL 4 MG/2 ML VIAL IV ONE (07:30)
[2023-09-26] MEDS ORDERED: ONDANSETRON HCL 4 MG/2 ML VIAL IV PRN (13:15)
[2023-09-26] MEDS ORDERED: NITROGLYCERIN 0.4 MG SL TAB SL PRN (13:15)
[2023-09-26] MEDS ORDERED: ACETAMINOPHEN 325 MG TAB PO PRN (13:15)
[2023-09-26] MEDS ORDERED: MORPHINE SULFATE INJ 2 MG/ml SYRG IV PRN (13:15)
[2023-09-26 21:00] VITALS: PULSE 71; RESP 20; O2SAT 94
[2023-09-26 22:00] VITALS: BP 122/55; PULSE 98; RESP 18; TEMP 97.7; O2SAT 99
[2023-09-26] MEDS: metroNIDAZOLE 500MG/100ML 100 ML IV SCH (22:10)
[2023-09-26] MEDS: D5W/ SOD CHL 0.9%/KCL 20MEQ 1,000 ML IV SCH (22:16)
[2023-09-26 22:44] VITALS: BP 112/68; PULSE 81; RESP 18; RESP 19; TEMP 98.5; O2SAT 98
[2023-09-26] MEDS: MORPHINE SULFATE INJ 2 MG/ml SYRG IV PRN (23:14)
[2023-09-26] MEDS ORDERED: OLAN10TA PO (23:23)
[2023-09-27 05:00] VITALS: BP 106/67; PULSE 81; RESP 16; TEMP 97.9; O2SAT 100
[2023-09-27] MEDS: metroNIDAZOLE 500MG/100ML 100 ML IV SCH ×3 (05:16→21:22)
[2023-09-27 06:25] LABS: Basophils # (auto) 0 10 ^3/uL (0-0.2); Basophils % (auto) 0.2 % (0.0-2.0); Eosinophils # (auto) 0 10 ^3/uL (0-0.8); Eosinophils % (auto) 0.3 % (0.0-7.0); Hematocrit 43.2 % (36.0-46.0); Hemoglobin 14.4 g/dL (12.2-16.2); Lymphocytes # (auto) 1.9 10 ^3/uL (0.4-5.4); Lymphocytes % (auto) 13.4 % (10.0-50.0); Mean Corpuscular Hgb Conc. 33.2 g/dL (32.0-36.0); Mean Corpuscular Volume 90.3 fL (80.0-100.0); Monocytes # (auto) 0.9 10 ^3/uL (0-1.3); Monocytes % (auto) 6.7 % (0.0-12.0); Neutrophils # (auto) 11.2 10 ^3/uL (1.6-8.6); Neutrophils % (auto) 79.4 % (37.0-80.0); Red Blood Cells 4.78 10^6/uL (4.0-5.20); Red Cell Distribution Width 14.5 % (11.8-14.3); White Blood Cell 14.1 10^3/uL (4.4-10.8)
[2023-09-27 06:46] LABS: Alanine Aminotransferase 31 U/L (7-40); Alkaline Phosphatase 127 U/L (46-116); Anion Gap 5 (5-15); Aspartate Aminotransferase 19 U/L (13-40); BUN/Creatinine Ratio 10.9 (10.0-20.0); Bilirubin, Total 0.3 mg/dL (0.2-1.0); Blood Urea Nitrogen 7 mg/dL (9-23); Calcium 8.7 mg/dL (8.7-10.4); Carbon Dioxide 28 mmol/L (20-30); Chloride 106 mmol/L (98-107); Glucose 98 mg/dL (74-106); Lipase 206 U/L (12-53); Potassium 3.6 mmol/L (3.5-5.1); Sodium 139 mmol/L (136-145); Total Protein 6.4 g/dL (5.7-8.2)
[2023-09-27 07:09] LABS: Amylase 408 U/L (30-118)
[2023-09-27 08:00] VITALS: PULSE 72; RESP 16; O2SAT 98
[2023-09-27 09:00] VITALS: BP 111/71; PULSE 72; RESP 16; TEMP 98.1; O2SAT 98
[2023-09-27] MEDS ORDERED: ENOXAPARIN SOD 40 MG/0.4 ML SYRINGE SC SCH (10:00)
[2023-09-27] MEDS: D5W/ SOD CHL 0.9%/KCL 20MEQ 1,000 ML IV SCH ×2 (10:00→21:27)
[2023-09-27 11:03] LABS: Hepatitis B Surface Antigen Negative (Negative)
[2023-09-27] MEDS: cefTRIAXone 1GM/50ML D5W 50 ML IV SCH (11:11)
[2023-09-27] MEDS: PANTOPRAZOLE 40 MG/10 ML VIAL INJ IV SCH (11:12)
[2023-09-27] MEDS: MORPHINE SULFATE INJ 2 MG/ml SYRG IV PRN ×2 (11:13→16:01)
[2023-09-27 11:24] LABS: Hepatitis A Ab IgM Negative
[2023-09-27 11:25] LABS: Hepatitis B Core IgM Negative
[2023-09-27 11:26] LABS: Hepatitis C Antibody Negative (Negative)
[2023-09-27 11:35] LABS: INR 0.98 (0.9-1.15); Partial Thromboplastin Time 25.7 SEC (24.5-34.5); Prothrombin Time 10.3 sec (9.3-11.8)
[2023-09-27 17:00] VITALS: BP 97/62; PULSE 64; RESP 16; O2SAT 92
[2023-09-27 20:00] VITALS: O2SAT 98
[2023-09-28] VITALS (9 sets, daily range): BP systolic 90–115; BP diastolic 48–62; PULSE 70–82; RESP 17–20; TEMP 97.4–98.3; O2SAT 95–100
[2023-09-28] MEDS: MORPHINE SULFATE INJ 2 MG/ml SYRG IV PRN ×2 (01:45→20:00)
[2023-09-28] MEDS: metroNIDAZOLE 500MG/100ML 100 ML IV SCH ×3 (05:10→21:13)
[2023-09-28] MEDS: D5W/ SOD CHL 0.9%/KCL 20MEQ 1,000 ML IV SCH ×2 (05:15→11:36)
[2023-09-28 05:50] LABS: Alanine Aminotransferase 25 U/L (7-40); Albumin 3.6 g/dL (3.2-4.8); Alkaline Phosphatase 111 U/L (46-116); Anion Gap 3 (5-15); Aspartate Aminotransferase 17 U/L (13-40); BUN/Creatinine Ratio 13.3 (10.0-20.0); Blood Urea Nitrogen 8 mg/dL (9-23); Calcium 8.2 mg/dL (8.7-10.4); Carbon Dioxide 26 mmol/L (20-30); Chloride 110 mmol/L (98-107); Glucose 99 mg/dL (74-106); Lipase 52 U/L (12-53); Potassium 3.6 mmol/L (3.5-5.1); Sodium 139 mmol/L (136-145)
[2023-09-28 05:51] LABS: Bilirubin, Total 0.4 mg/dL (0.2-1.0); Total Protein 5.8 g/dL (5.7-8.2)
[2023-09-28 06:07] LABS: Basophils # (auto) 0 10 ^3/uL (0-0.2); Basophils % (auto) 0.3 % (0.0-2.0); Eosinophils # (auto) 0.1 10 ^3/uL (0-0.8); Eosinophils % (auto) 0.7 % (0.0-7.0); Hemoglobin 13.1 g/dL (12.2-16.2); Lymphocytes # (auto) 2.2 10 ^3/uL (0.4-5.4); Lymphocytes % (auto) 25.2 % (10.0-50.0); Mean Corpuscular Hgb Conc. 33.5 g/dL (32.0-36.0); Mean Corpuscular Volume 89.7 fL (80.0-100.0); Monocytes # (auto) 0.8 10 ^3/uL (0-1.3); Monocytes % (auto) 8.8 % (0.0-12.0); Neutrophils # (auto) 5.6 10 ^3/uL (1.6-8.6); Nucleated Red Blood Cells % 0.1 %; Red Blood Cells 4.35 10^6/uL (4.0-5.20); Red Cell Distribution Width 13.8 % (11.8-14.3); White Blood Cell 8.6 10^3/uL (4.4-10.8)
[2023-09-28] MEDS ORDERED: ceFAZolin 2 GM/D5W100ml 100 ML IV ONE (06:51)
[2023-09-28] MEDS ORDERED: LIDOCAINE W/ EPINEPHRINE 1% 20ML VIAL ONE (07:06)
[2023-09-28] MEDS ORDERED: LIDOCAINE 2% JELLY 11ml (GLYDO) ONE (07:06)
[2023-09-28] MEDS ORDERED: SUCCINYLCHOLINE CHLORIDE 20 MG/ML 10ML VIAL IV ONE (07:07)
[2023-09-28] MEDS ORDERED: MIDAZOLAM HCL 2MG/2ML 2ml VIAL (1mg/ml) ONE (07:24)
[2023-09-28] MEDS ORDERED: MEPERIDINE HCL (25 MG/ML) 1ML VIAL ONE (07:24)
[2023-09-28] MEDS ORDERED: fentaNYL CITRATE 100 MCG/2 ML VL ONE (07:24)
[2023-09-28] MEDS ORDERED: DexAMETHasone SOD PHOS 10MG/1ML VIAL INJ ONE (07:54)
[2023-09-28] MEDS ORDERED: ONDANSETRON HCL 4 MG/2 ML VIAL ONE (08:04)
[2023-09-28] MEDS ORDERED: PROPOFOL 10 MG/ML 20 ML IV ONE (08:04)
[2023-09-28] MEDS ORDERED: ROCURONIUM 10MG/ML 10ML VIAL IV ONE (08:05)
[2023-09-28] MEDS ORDERED: KETOROLAC TROMETH 30 MG/ML 1ML VIAL ONE (08:16)
[2023-09-28] MEDS ORDERED: MORPHINE SULFATE 4 MG/ML SYR/VIAL IV PRN (09:15)
[2023-09-28] MEDS ORDERED: MIDAZOLAM HCL 2MG/2ML 2ml VIAL (1mg/ml) IV PRN (09:15)
[2023-09-28] MEDS ORDERED: ePHEDrine SULFATE 50 MG/ML AMP IV PRN (09:15)
[2023-09-28] MEDS ORDERED: LABETALOL HCL 5 MG/ML 4ML SYRINGE IV PRN (09:15)
[2023-09-28] MEDS ORDERED: ONDANSETRON HCL 4 MG/2 ML VIAL IV PRN (09:15)
[2023-09-28] MEDS ORDERED: KETOROLAC TROMETH 30 MG/ML 1ML VIAL IV ONE (09:15)
[2023-09-28] MEDS: HYDROmorphone HCL 2 MG/ML VL/or syr IV PRN ×4 (09:31→10:01)
[2023-09-28] MEDS ORDERED: SUGAMMADEX 200mg/2ml Vial (100MG/ML) IV ONE (10:32)
[2023-09-28] MEDS: PANTOPRAZOLE 40 MG/10 ML VIAL INJ IV SCH (11:35)
[2023-09-28] MEDS: cefTRIAXone 1GM/50ML D5W 50 ML IV SCH (11:35)
[2023-09-28] MEDS: SODIUM CHLORIDE 0.9% 1,000 ML IV SCH (11:37)
[2023-09-28] MEDS ORDERED: PHENYLEPHRINE HCL 10 MG/ML VL IV ONE (13:09)
[2023-09-28] MEDS: ACETAMINOPHEN/CODEINE#3 (300/30mg) TAB PO PRN ×2 (14:37→21:13)
[2023-09-29] MEDS: D5W/ SOD CHL 0.9%/KCL 20MEQ 1,000 ML IV SCH ×2 (01:15→11:15)
[2023-09-29] MEDS: SODIUM CHLORIDE 0.9% 1,000 ML IV SCH ×2 (01:37→11:40)
[2023-09-29 05:00] VITALS: BP 135/90; PULSE 103; RESP 18; TEMP 98.3; O2SAT 96
[2023-09-29] MEDS: metroNIDAZOLE 500MG/100ML 100 ML IV SCH (05:25)
[2023-09-29 08:16] LABS: Basophils # (auto) 0 10 ^3/uL (0-0.2); Basophils % (auto) 0.1 % (0.0-2.0); Eosinophils # (auto) 0 10 ^3/uL (0-0.8); Hematocrit 37.3 % (36.0-46.0); Hemoglobin 12.5 g/dL (12.2-16.2); Lymphocytes # (auto) 1.7 10 ^3/uL (0.4-5.4); Lymphocytes % (auto) 14.9 % (10.0-50.0); Mean Corpuscular Hemoglobin 29.9 pg (28.0-32.0); Mean Corpuscular Hgb Conc. 33.5 g/dL (32.0-36.0); Mean Corpuscular Volume 89.4 fL (80.0-100.0); Monocytes # (auto) 0.9 10 ^3/uL (0-1.3); Monocytes % (auto) 7.8 % (0.0-12.0); Neutrophils % (auto) 77.2 % (37.0-80.0); Red Blood Cells 4.17 10^6/uL (4.0-5.20); Red Cell Distribution Width 13.9 % (11.8-14.3); White Blood Cell 11.6 10^3/uL (4.4-10.8)
[2023-09-29 08:31] LABS: Alanine Aminotransferase 40 U/L (7-40); Albumin 3.8 g/dL (3.2-4.8); Alkaline Phosphatase 116 U/L (46-116); Anion Gap 6 (5-15); Aspartate Aminotransferase 26 U/L (13-40); Bilirubin, Total 0.5 mg/dL (0.2-1.0); Calcium 9.1 mg/dL (8.5-10.1); Carbon Dioxide 27 mmol/L (20-30); Chloride 107 mmol/L (98-107); Glucose 106 mg/dL (74-106); Potassium 3.9 mmol/L (3.5-5.1); Sodium 140 mmol/L (136-145)
[2023-09-29 08:32] LABS: BUN/Creatinine Ratio 8.3 (10.0-20.0); Blood Urea Nitrogen < 5 mg/dL (9-23)
[2023-09-29 09:15] LABS: Lipase 37 U/L (12-53)
[2023-09-29 09:30] VITALS: BP 105/49; PULSE 80; RESP 18; TEMP 97.9; O2SAT 91
[2023-09-29] MEDS: cefTRIAXone 1GM/50ML D5W 50 ML IV SCH (09:56)
[2023-09-29] MEDS: PANTOPRAZOLE 40 MG/10 ML VIAL INJ IV SCH (09:56)
[2023-09-29] MEDS ORDERED: HYDR-4902 PO (11:55)
[2023-09-29] MEDS ORDERED: POLY335015 PO (11:55)
[2023-09-29 13:00] VITALS: BP 102/62; PULSE 84; RESP 18; TEMP 98.2; O2SAT 93
[2023-09-29 16:27] VITALS: BP 109/53; PULSE 76; RESP 17; TEMP 98; O2SAT 93
== END 2023-09-29 17:30 | disposition home or self-care (01) | DRG 263 ==
LOC: EDBD 03:09 → ER 03:09 → EDUNIT# 03:09 → OVERFLOW 13:15 → CENTRAL 21:14
PROVIDERS: ADMIT Nurse Practitioner Family; ATTEND Nurse Practitioner Family
PROC: 0FT44ZZ Resection of Gallbladder, Percutaneous Endoscopic Approach (ICD-10-PCS; principal; 2023-09-28 07:27)
DX: K81.9 Cholecystitis, unspecified (principal); K85.10 Biliary acute pancreatitis without necrosis or infection; D72.829 Elevated white blood cell count, unspecified; F15.10 Other stimulant abuse, uncomplicated; F17.210 Nicotine dependence, cigarettes, uncomplicated; Z59.00 Homelessness unspecified; F31.9 Bipolar disorder, unspecified
CPT/HCPCS: 36415; 74176; 76705; 80053; 80074; 82150; 83605; 83690; 84702; 85025; 85610; 85730; 86850; 86900; 86901; 87040; C9113; G0378; J0330; J0696; J1100; J1885; J2250; J2405; J2704; J3490